=== PATIENT | female | born 1990 | race Caucasian/White ===

== ENCOUNTER 2017-05-21 09:30 | Inpatient (IN) | payer MEDICAID ==
[2017-05-21] MEDS ORDERED: OXYTOCIN 20 UNIT in LR 1,000 ML IV PRN (09:56)
[2017-05-21] MEDS ORDERED: TERBUTALINE SULFATE 1 MG/ML VIAL IV PRN (09:56)
[2017-05-21] MEDS ORDERED: OLIVE OIL 118 ML BTL MISC PRN (09:56)
[2017-05-21] MEDS ORDERED: EPSOM SALT 454 GM TP PRN (09:56)
[2017-05-21] MEDS ORDERED: LR 1,000 ML IV PRN (09:56)
[2017-05-21] MEDS ORDERED: fentaNYL 100 MCG/2 ML INJ ONE (09:57)
[2017-05-21] MEDS ORDERED: fentaNYL 2MCG/ML/BUP 0.1% RTU 100 ML BAG EP ONE (09:58)
[2017-05-21] MEDS ORDERED: BUPIVACAINE 0.25% 30 ML SDV ONE (09:58)
[2017-05-21] MEDS ORDERED: PHENYLEPHRINE HCL 100 MCG/ML SYR ONE (09:58)
[2017-05-21 10:07] LABS: % IMMATURE GRANULYOCYTES 0.7 % (0.0-1.1); ABSOLUTE IMMATURE GRANULOCYTES 0.08 10^3/uL (0.00-0.10); ADD DIFF? NO; ADD MORPH? NO; ADD SCAN? NO; ATYPICAL LYMPHOCYTE FLAG 10 (0-99); FRAGMENT RBC FLAG 0 (0-99); HEMATOCRIT 34.2 % (38.0-47.0); HEMOGLOBIN 11.4 g/dL (12.6-16.3); LEFT SHIFT FLG 0 (0-99); LIPEMIA HEMOLYSIS FLAG 80 (0-99); MEAN CELL HEMOGLOBIN CONCENTR. 33.3 g/dL (32.4-36.7); MEAN PLATELET VOLUME 10.1 fL (8.7-11.7); PLATELET CLUMPS FLAG 0 (0-99); PLATELET COUNT 231 10^3/uL (150-400); RED BLOOD CELL COUNT 3.93 10^6/uL (4.18-5.33); RED CELL DISTRIBUTION WIDTH 15.9 % (11.5-15.2)
[2017-05-21] MEDS ORDERED: TERBUTALINE SULFATE 1 MG/ML VIAL ONE (10:08)
[2017-05-21] MEDS ORDERED: OLIVE OIL 118 ML BTL ONE (10:08)
[2017-05-21] MEDS ORDERED: AMMONIA AROMATIC 1 EACH AMP IH ONE (10:08)
[2017-05-21] MEDS ORDERED: LIDOCAINE 1% 300 MG/30 ML SDV ONE (10:08)
[2017-05-21] MEDS ORDERED: OXYTOCIN 10 UNIT/ML VIAL ONE ×2 (10:09→10:53)
[2017-05-21] MEDS ORDERED: MISOPROSTOL 200 MCG TAB ONE (10:09)
--- NOTE | 2017-05-21 10:37 | GHP ---
[f rep st] PREOP HISTORY AND PHYSICAL DATE OF ADMISSION: 05/21/2017 ADMITTING DIAGNOSIS: Intrauterine at 38-0/7 weeks' gestation with spontaneous active labor . HISTORY OF PRESENT ILLNESS: The patient is a 27-year-old 1, para 0, with a last menstrual pe riod of 08/28/2016, EDC of 06/04/2017, which was confirmed by a first trimester ultrasound. She is a recent transfer to [facility] at 35 weeks from [facility] due to a move to [facility]. She has had a relatively uncomplicated course. She has a history of asthma, a history of THC use in the first trimester; she quit. A history of uterine fibroids that are small. No othe r significant risk factors. The patient began having contractions on the morning of the , had spontaneous rupture of membranes and presented to labor and delivery complete and +2 station. The patient has no past obstetrical history. PAST SURGICAL HISTORY: Menarche at age 12, interval q.28 days, 6-7 days. No significant history of abnormal Paps or STDs, and this is her first . PAST MEDICAL HISTORY: History of asthma, not significant. Has normal exercise tolerance. No chroni c meds. She has a history of a fractured left elbow secondary to a snow boarding accident in 2013. No major surgeries. ALLERGIES: No known drug allergies MEDICATIONS: Just include vitamins and DHA. LABS: She is O positive. Antibody negative. RPR nonreactive. Rubella immune. Hepatitis negative. HIV negative. Cystic fibrosis negative. Gonorrhea and chlamydia negative. Negative sequential sc reen. One-hour GTT was 139. GBS is negative. SOCIAL HISTORY: She is . She lives with her . 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 She denies tobacco, alcohol, and drug use. REVIEW OF SYSTEMS: Negative, except for contractions and pressure as above for active labor. FAMILY HISTORY: Father had a myocardial infarction at age 45, paternal grandfather, as well as pater nal uncle. Mother has chronic hypertension. She has kidney stones. Maternal grandmother had leukem ia. Paternal grandmother had breast cancer. Father has also had strokes. OBJECTIVE: VITAL SIGNS: Today afebrile. Vital signs are stable. heart tones are 130s, reactive, moderate variability, category 1. She is ramona every 3-4 minutes. Cervix is complete and +2 per RN exam. ASSESSMENT/PLAN: A 27-year-old 1, para 0, at 38 and 0/7 weeks' gestation, in spontaneous act alexander labor. Patient desires an epidural for pain control prior to entering the second stage of labor. We will try to get this done. status is reassuring. /[id number]/MODL
--- NOTE | 2017-05-21 10:59 | OBPROG ---
Labor Progress Note Assessment/Plan: Assessment: 27 y/o @ 38 weeks in spontaneous labor Plan: AROM now, will allow for passive descent and begin pushing when she feels the urge. status is reassuring. 05/21/17 10:59 Subjective/Intrapartum Course: 05/21/17 10:56 Pt is now comfortable with her epidural. She was feeling pelvic pressure. Objective: 05/21/17 10:00 - SVE Dilation (cm): 9 Effacement (%): 100 Station: +1 Membranes: AROM Amniotic Fluid Color: Clear - Contraction Pattern Assessment Current Contraction Pattern: Regular (Q 4) - FHR Assessment Myles FHR (bpm): 130 FHR Pattern Variability: Moderate FHR Category: 1 - Procedures Non-surgical Procedures: Amniotomy - AP Antepartum Course: 05/21/17 10:58 transfer @ 35 weeks from [facility]. h/o asthma, 1 hour gtt 139 no 3 hour done ICD10 Worksheet Patient Problems: Problems Problem Status Onset Active labor at term Acute - ICD10 Problem Qualifiers (1) Active labor at term
[2017-05-21] MEDS ORDERED: ONDANSETRON 4 MG/2 ML VIAL IVP PRN (13:52)
[2017-05-21] MEDS ORDERED: PHENYLEPHRINE HCL 100 MCG/ML SYR IVP PRN (13:52)
--- NOTE | 2017-05-21 13:55 | POSTANESTH ---
Post Anesthetic Evaluation Cardiovascular Status: Normal, Stable, Similar to Pre-Op Cond Respiratory Status: Normal, Stable, Similar to Pre-op Cond. Level of Consciousness/Mental Status: Can Participate in Eval, Alert and Oriented Pain Control: Adequate, Prn Tx Ordered Nausea/Vomiting Control: Adequate, Prn Tx Ordered Complications Possibly Related to Anesthesia: None Noted
[2017-05-21] MEDS ORDERED: fentaNYL 2MCG/ML/BUP 0.1% RTU 100 ML EP SCH (14:00)
[2017-05-21] MEDS ORDERED: LR 500 ML IV SCH (14:00)
--- NOTE | 2017-05-21 14:08 | PREANESOB ---
Obstetric Pre-Anesthesia Info - General Info Proposed Procedure: Labor and delivery. : 1 Para: 0 ALAINA: 06/04/17 Gestational Age: 38 week(s) and 0 day(s) - Info Status: Full Term Monitors: External FHR Baseline (bpm): 130 FHR Pattern: Reassuring - Labor Status Cervical Dilation per last OB SVE: 10 Station per last OB SVE: +1 Amniotic Fluid Color: Clear Indications for Labor Analgesia: Pain Control Labor Epidural: Proposed Anesthesia ROS: Negative. Allergies/Adverse Reactions: Allergy/AdvReac Type Severity Reaction Status Date / Time No Known Allergies Allergy Unverified 05/21/17 09:56 Visit Medications: Generic Name Dose Route Start Last Admin Trade Name Freq PRN Reason Stop Dose Admin Diphenhydramine HCl 25 - 50 mg 05/21/17 13:52 Benadryl Injection IVP 11/17/17 13:51 Q6HRS PRN Itching Lactated Ringer's 1,000 mls @ 0 mls/hr 05/21/17 09:56 Lr IV 05/22/17 09:55 PRN PRN SEE PROTOCOL CONDITIONS Protocol Per Protocol Oxytocin 20 unit/ Lactated 1,002 mls @ 150 mls/hr 05/21/17 09:56 Ringer's IV PRN PRN Post- bleeding Fentanyl/Bupivacaine HCl 100 mls @ 0 mls/hr 05/21/17 14:00 Fentanyl/Bupivacaine/Ns 2 Mcg/Ml 0.1% (Premix EP 05/31/17 13:59 CONT ESTEFANIA Protocol As Directed Lactated Ringer's 500 mls @ 0 mls/hr 05/21/17 14:00 Lr IV 11/17/17 13:59 CONT ESTEFANIA As Directed Ibuprofen 600 mg 05/21/17 09:56 Motrin PO 11/17/17 09:55 Q6HRS PRN post , inflammation Magnesium Sulfate 454 gm 05/21/17 09:56 Epsom Salt TP 11/17/17 09:55 Q1H PRN perineal discomfort [place] Oil 118 ml 05/21/17 09:56 Sweet Oil MISC 11/17/17 09:55 ONCE PRN perineal massage Ondansetron HCl 4 mg 05/21/17 13:52 Zofran IVP 05/22/17 13:51 Q4HRS PRN Nausea/Vomiting, Can't Take PO Phenylephrine HCl 100 mcg 05/21/17 13:52 Neosynephrine IVP 11/17/17 13:51 .Q2M PRN Hypotension Terbutaline Sulfate 0.25 mg 05/21/17 09:56 Brethine IV 11/17/17 09:55 ONCE PRN Tachysystole Discontinued Medications Generic Name Dose Route Start Last Admin Trade Name Aj PRN Reason Stop Dose Admin Ammonia (Aromatic Spirit) Confirm 05/21/17 10:08 Ammonia Aromatic Administered 05/21/17 10:09 Dose 1 each IH .STK-MED ONE Bupivacaine HCl Confirm 05/21/17 09:58 Sensorcaine 0.25% Sdv Administered 05/21/17 09:59 Dose 30 ml .ROUTE .STK-MED ONE Fentanyl Confirm 05/21/17 09:57 Sublimaze Administered 05/21/17 09:58 Dose 100 mcg .ROUTE .STK-MED ONE Fentanyl/Bupivacaine HCl Confirm 05/21/17 09:58 Fentanyl/Bupivacaine/Ns 2 Mcg/Ml 0.1% (Premix Administered 05/21/17 09:59 Dose 100 ml EP .STK-MED ONE Lidocaine HCl Confirm 05/21/17 10:08 Lidocaine Hcl 1% Administered 05/21/17 10:09 Dose 300 mg .ROUTE .STK-MED ONE Misoprostol Confirm 05/21/17 10:09 Cytotec Administered 05/21/17 10:10 Dose 800 mcg .ROUTE .STK-MED ONE [place] Oil Confirm 05/21/17 10:08 Sweet Oil Administered 05/21/17 10:09 Dose 118 ml .ROUTE .STK-MED ONE Oxytocin Confirm 05/21/17 10:09 Pitocin Administered 05/21/17 10:10 Dose 40 unit .ROUTE .STK-MED ONE Oxytocin Confirm 05/21/17 10:53 Pitocin Administered 05/21/17 10:54 Dose 20 unit .ROUTE .STK-MED ONE Phenylephrine HCl Confirm 05/21/17 09:58 Neosynephrine Administered 05/21/17 09:59 Dose 1,000 mcg .ROUTE .STK-MED ONE Terbutaline Sulfate Confirm 05/21/17 10:08 Brethine Administered 05/21/17 10:09 Dose 1 mg .ROUTE .STK-MED ONE - Anesthesia History Response to Local Anesthetics: Normal Anesthesia & Operative History: No Prior Problems Family Anesthesia History: Not Applicable - Social History Substance Use/Abuse: Denies - Vital Signs Blood Pressure: 125/80 Heart Rate: 107 Respiratory Rate: 18 Height/Weight (Nursing): Height 170.18 cm Weight 70.307 kg - Focused Exam Mallampati Score: Class 1 Mouth exam: normal dental/mouth exam Pulmonary: no respiratory distress Cardiovascular: regular rate and rhythym Labs: 05/21/17 10:00 Patient ABO/Rh O POSITIVE 05/21/17 10:00 - Plan Anesthetic Plan: MAC Consent Signed and on Chart: Yes Patient/Guardian Understands and Agrees to Plan: Yes Urgent/Emergent Case: Eleno chinchilla completed preop but documented later for safe timely pt care
[2017-05-21] MEDS ORDERED: HYDROCORTISONE 0.5% CREAM TP PRN (15:07)
[2017-05-21] MEDS ORDERED: ACETAMINOPHEN 325 MG TAB PO PRN (15:07)
[2017-05-21] MEDS ORDERED: SIMETHICONE 80 MG TAB CHEW PO PRN (15:07)
--- NOTE | 2017-05-21 15:11 | OBDEL ---
Info Type: Vaginal Presentation at Delivery: Vertex L&D Analgesia/Anesthesia Type: Epidural, Local (1 % lidocaine) GBS+: No - Hospital Course Intrapartum: 05/21/17 10:56 Pt is now comfortable with her epidural. She was feeling pelvic pressure. Indications for Delivery: Spontaneous Labor Vaginal Delivery - Delivery Provider Delivery Physician/CNM: Brisa Shelton - Labor and Delivery Onset of Contractions Date: 05/21/17 Onset of Contractions Time: 04:30 Onset of Contractions Type: Spontaneous Rupture of Membranes Date: 05/21/17 Rupture of Membranes Time: 10:55 Rupture of Membranes Type: Artificial Amniotic Fluid Color: Clear Dilation Complete Date: 05/21/17 Dilation Complete Time: 12:30 Placenta Delivery Date: 05/21/17 Placenta Delivery Time: 14:50 Total Hours of Labor: 10 Non-surgical Procedures: Amniotomy Laceration: 2nd Degree Repair: 2-0, Vicryl Vaginal Sponge Count Correct: Yes Vaginal Needle Count Correct: Yes Vaginal Sweep Performed: No EBL: 300 Delivery Events: Other (Specify) (compound presentation Right hand) - Medications Labor Augmentation/Induction Methods Used: None Data Myles Delivery Date: 05/21/17 Delivery Time: 14:42 ALAINA: 06/04/17 Gestational Age: 38 week(s) and 0 day(s) Sex of : Male Score (1 Min): 8 Score (5 Min): 9 ICD10 Worksheet Patient Problems: Problems Problem Status Onset Active labor at term Acute (spontaneous vaginal delivery) Acute - ICD10 Problem Qualifiers (1) Active labor at term (2) (spontaneous vaginal delivery)
[2017-05-21] MEDS: IBUPROFEN 600 MG TAB PO PRN (22:34)
[2017-05-21] MEDS: HYDROCODONE/APAP 5/325 TAB PO PRN (22:35)
[2017-05-22] MEDS: IBUPROFEN 600 MG TAB PO PRN ×3 (08:12→19:48)
[2017-05-22] MEDS: DOCUSATE SODIUM 100 MG CAP PO PRN (08:12)
--- NOTE | 2017-05-22 09:46 | OBPP ---
Progress Note Assessment/Plan: Assessment: 1) s/p PPD # 1 - pt is stable 2) Anemia - pt is asymptomatic Plan: Continue routine pp care Iron is already ordered Plan for d/c home in am 12/6 05/22/17 09:45 Subjective/ Course: 05/22/17 09:45 Pt seen and examined. Pt just finished taking a bath-doing well with no complaints. Mild cramping. Mod lochia. She is OOB, ana regular diet, voiding and passing flatus. BF without difficulty. Objective: 05/22/17 07:55 Patient ABO/Rh O POSITIVE 05/21/17 10:00 Temp Pulse Resp BP Pulse Ox 36.4 C 87 18 131/77 H 96 05/21/17 19:50 05/21/17 19:50 05/21/17 19:50 05/21/17 19:50 05/21/17 19:50 Uterine Position/Fundal Height: Umbilicus -2 Uterine Tone: Firm Physical Exam - Physical Exam Respiratory: lungs clear, normal breath sounds Cardiac/Chest: regular rate, rhythm Abdomen: normal bowel sounds, non-tender, soft, flatus (+) Extremities: non-tender, normal inspection Skin: normal color, warm/dry Neuro/Psych: alert, normal mood/affect, oriented x 3
[2017-05-22 12:12] VITALS: RESP 16
[2017-05-22] MEDS: IRON POLYSAC/IRON HEME 28 MG TAB PO SCH (12:19)
[2017-05-22] MEDS: HYDROCODONE/APAP 5/325 TAB PO PRN (14:50)
[2017-05-22 20:20] VITALS: O2SAT 97
[2017-05-23] MEDS: HYDROCODONE/APAP 5/325 TAB PO PRN (00:35)
[2017-05-23] MEDS: DOCUSATE SODIUM 100 MG CAP PO PRN (08:35)
[2017-05-23] MEDS: IRON POLYSAC/IRON HEME 28 MG TAB PO SCH (08:35)
[2017-05-23] MEDS: IBUPROFEN 600 MG TAB PO PRN (08:35)
[2017-05-23 10:31] VITALS: BP 123/66; PULSE 97; TEMP 97.9
--- NOTE | 2017-05-23 12:00 | OBPP ---
Progress Note Assessment/Plan: Assessment: PPD 2 s/p anemia Plan: D/C home, iron BID 05/23/17 11:58 Subjective/ Course: 05/22/17 09:45 Pt seen and examined. Pt just finished taking a bath-doing well with no complaints. Mild cramping. Mod lochia. She is OOB, ana regular diet, voiding and passing flatus. BF without difficulty. 05/23/17 11:59 Doing well. working on BF, tired. mild cramps. bld is light. urinating fine. Objective: 05/22/17 07:55 Patient ABO/Rh O POSITIVE 05/21/17 10:00 Temp Pulse Resp BP Pulse Ox 36.6 C 97 16 123/66 H 97 05/23/17 08:15 05/23/17 08:15 05/23/17 08:15 05/23/17 08:15 05/22/17 19:45 Uterine Position/Fundal Height: Umbilicus -1 Uterine Tone: Firm Physical Exam - Physical Exam Abdomen: non-tender, soft, other (FF at umb-1) Extremities: non-tender, pedal edema (mild) Skin: normal color, warm/dry Neuro/Psych: alert, normal mood/affect
== END 2017-05-23 12:40 | disposition home or self-care (01) | DRG 775 ==
LOC: FLD 09:30 → FOB 18:13
PROVIDERS: ADMIT Obstetrics & Gynecology; ATTEND Obstetrics & Gynecology
PROC: 0KQM0ZZ Repair Perineum Muscle, Open Approach (ICD-10-PCS; principal; 2017-05-21)
PROC: 10907ZC Drainage of Amniotic Fluid, Therapeutic from Products of Conception, Via Natural or Artificial Opening (ICD-10-PCS; principal; 2017-05-21)
PROC: 10E0XZZ Delivery of Products of Conception, External Approach (ICD-10-PCS; principal; 2017-05-21)
DX: O70.1 Second degree perineal laceration during delivery (principal); O32.6XX0 Maternal care for compound presentation, not applicable or unspecified; Z3A.38 38 weeks gestation of pregnancy; Z37.0 Single live birth
CPT/HCPCS: J2370; J3010; J3105

== ENCOUNTER 2018-10-02 10:35 | Emergency (ER) | payer MEDICAID ==
[2018-10-02] MEDS ORDERED: ONDANSETRON DISINTEGRATING 4 MG TAB PO ONE (10:47)
[2018-10-02] MEDS ORDERED: PROMETHAZINE HCL 25 MG/ML INJ IVP ONE (12:07)
--- NOTE | 2018-10-02 12:07 | EDPHY ---
H & P Stated Complaint: "i think im " vomiting h/a x 1 week Source: Patient, Family () Exam Limitations: No limitations - Personal History LMP (Females 10-55): Over 28 Days Ago - Medical/Surgical History Hx Asthma: No Hx Chronic Respiratory Disease: No Hx Diabetes: No Hx Cardiac Disease: No Hx Renal Disease: No Hx Cirrhosis: No Hx Alcoholism: No Hx HIV/AIDS: No Hx Splenectomy or Spleen Trauma: No Other PMH: Hx ovarian cysts, fibroids - Social History Smoking Status: Never smoked Time Seen by Provider: 10/02/18 12:01 HPI/ROS: HPI: This is a 28-year-old female who presents with Chief Complaint: "i think im " vomiting h/a x 1 week Location: Abdomen Quality: Nausea, vomiting Duration: 1 week Signs and Symptoms: no fever, + nausea, + vomiting, no hematemesis, no blood in stool, no abdominal bloating, no diarrhea, no back pain, no urinary symptoms, no vaginal bleeding/discharge, no indigestion, no chest pain, no shortness of breath Timing: Acute, worse in the morning Severity: Moderate Context: Patient is G1, currently breast-feeding her [id number] child presents with 1 week history of nausea and several episodes of vomiting daily that occur mostly in the mornings. She reports that she has decreased appetite but feels hungry. She has a generalized dull aching headache. Not the worse headache of her life. Denies thunderclap symptoms. She has no dysuria, urinary frequency, urinary hesitancy. OBGYN is Dr. Dudley. Last menstrual period was sometime in June. July she had "a light period." Patient reports that she had similar symptoms with her 1st . Modifying Factors: None Comment: ROS: A comprehensive 10 system review of systems is otherwise negative aside from elements mentioned in the history of present illness. MEDICAL/SURGICAL/SOCIAL HISTORY: Medical history: Ovarian cysts, fibroids Surgical history: Denies Social history: . Nonsmoker. Family history noncontributory. CONSTITUTIONAL: Well-developed, well-nourished, adult white female, and child at bedside, awake and alert, no obvious distress HEENT: Atraumatic and normocephalic, PERRL, EOMI. Nares patent; no rhinorrhea; no nasal mucosal edema. Tympanic membranes clear. Oropharynx clear, no exudate and moist pink mucosa. Airway patent. No lymphadenopathy. No meningismus. Cardiovascular: Normal S1/S2, regular rate, regular rhythm, without murmur rub or gallop. PULMONARY/CHEST: Symmetrical and nontender. Clear to auscultation bilaterally. Good air movement. No accessory muscle usage. ABDOMEN: Soft, nondistended, nontender, no rebound, no guarding, no peritoneal signs, no masses or organomegaly. No CVAT. EXTREMITIES: 2/2 pulses, strength 5/5, no deformities, no clubbing, no cyanosis or edema. NEUROLOGICAL: no focal neuro deficits. GCS 15. SKIN: Warm and dry, no erythema. no rash. Good capillary refill. (Alejandra Molina) Constitutional: Initial Vital Signs Temperature (C) 36.5 C 10/02/18 10:40 Heart Rate 84 10/02/18 10:40 Respiratory Rate 16 10/02/18 10:40 Blood Pressure 118/77 10/02/18 10:40 O2 Sat (%) 98 10/02/18 10:40 O2 Delivery Mode Room Air Allergies/Adverse Reactions: No Known Allergies Allergy (Verified 10/02/18 10:39) Home Medications: Medication Instructions Recorded Cephalexin [Keflex (*)] 500 mg PO TID #21 cap 10/02/18 Vit27&Calcium/Iron/FA 1 each PO DAILY #30 tab 10/02/18 [ Rx 1 Tablet (RX)] Promethazine HCl 25 mg PO Q6 #12 tablet 10/02/18 Medical Decision Making ED Course/Re-evaluation: Vital signs reviewed and stable upon arrival. IV access, laboratory studies, urinalysis ordered Given 1 L normal saline, p.o. Zofran Urinalysis my read shows 4+ bacteria, 2+ LE, 1+ ketones; sent for urine culture ; IV Rocephin given Laboratory studies reviewed. No signs of leukocytosis/anemia/platelet dysfunction/RENETTA/electrolyte imbalance. Chart review shows on 10/02/2018 blood type was O-positive No signs of dehydration. Abdomen is soft and nontender with no vaginal bleeding to indicate pelvic ultrasound need No signs of pyelonephritis 1240: Reassessed patient who reports relief of symptoms and ability to tolerate p.o. Given a prescription for vitamins, Phenergan, with OBGYN follow-up. This patient was seen under the supervision of my secondary supervising physician. I evaluated care for this patient independently. (Alejandra Molina) The patient was evaluated and managed by the physician certified physician assistant. I have reviewed this chart and I agree with the findings and plan of care as documented , as indicated by my signature. I am the secondary supervising physician. ( Bettie Agrawal) Differential Diagnosis: Differential diagnosis includes but is not limited to gastroparesis, , gastroenteritis, GERD, electrolyte imbalance (Alejandra Molina) - Data Points Laboratory Results: Laboratory Results 10/02/18 11:11 10/02/18 11:05 10/02/18 10/02/18 10/02/18 11:11 11:05 10:50 WBC 8.64 10^3/uL 10^3/uL (3.80-9.50) RBC 4.83 10^6/uL 10^6/uL (4.18-5.33) Hgb 15.6 g/dL g/dL (12.6-16.3) Hct 45.6 % % (38.0-47.0) MCV 94.4 fL fL (81.5-99.8) MCH 32.3 pg pg (27.9-34.1) MCHC 34.2 g/dL g/dL (32.4-36.7) RDW 12.5 % % (11.5-15.2) Plt Count 298 10^3/uL 10^3/uL (150-400) MPV 9.4 fL fL (8.7-11.7) Neut % (Auto) 64.2 % % (39.3-74.2) Lymph % (Auto) 24.1 % % (15.0-45.0) [place] % (Auto) 7.8 % % (4.5-13.0) Eos % (Auto) 2.8 % % (0.6-7.6) Baso % (Auto) 0.9 % % (0.3-1.7) Nucleat RBC Rel Count 0.0 % % (0.0-0.2) Absolute Neuts (auto) 5.55 10^3/uL 10^3/uL (1.70-6.50) Absolute Lymphs (auto) 2.08 10^3/uL 10^3/uL (1.00-3.00) Absolute Monos (auto) 0.67 10^3/uL 10^3/uL (0.30-0.80) Absolute Eos (auto) 0.24 10^3/uL 10^3/uL (0.03-0.40) Absolute Basos (auto) 0.08 10^3/uL 10^3/uL (0.02-0.10) Absolute Nucleated RBC 0.00 10^3/uL 10^3/uL (0-0.01) Immature Gran % 0.2 % % (0.0-1.1) Immature Gran # 0.02 10^3/uL 10^3/uL (0.00-0.10) Sodium 136 mEq/L mEq/L (135-145) Potassium 4.1 mEq/L mEq/L (3.5-5.2) Chloride 103 mEq/L mEq/L (97-110) Carbon Dioxide 21 mEq/l L mEq/l (22-31) Anion Gap 12 mEq/L mEq/L (6-14) BUN 13 mg/dL mg/dL (7-23) Creatinine 0.8 mg/dL mg/dL (0.6-1.0) Estimated GFR > 60 Glucose 88 mg/dL mg/dL (70-100) Calcium 9.2 mg/dL mg/dL (8.5-10.4) Urine Color MALVIN Urine Appearance TURBID Urine pH 6.0 (5.0-7.5) Ur Specific [place] 1.030 (1.002-1.030) Urine Protein 2+ H (NEGATIVE) Urine Ketones 1+ H (NEGATIVE) Urine Blood NEGATIVE (NEGATIVE) Urine Nitrate NEGATIVE (NEGATIVE) Urine Bilirubin NEGATIVE (NEGATIVE) Urine Urobilinogen 2.0 EU H EU (0.2-1.0) Ur Leukocyte Esterase 2+ H (NEGATIVE) Urine RBC 15-25 /hpf H /hpf (0-3) Urine WBC 25-50 /hpf H /hpf (0-3) Ur Epithelial Cells 4+ /lpf H /lpf (NONE-1+) Urine Bacteria 4+ /hpf H /hpf (NONE SEEN) Urine Mucus 4+ /lpf H /lpf (NONE-1+) Urine Glucose NEGATIVE (NEGATIVE) Medications Given: Discontinued Medications Ceftriaxone Sodium/Dextrose (Rocephin 1 Gm (Premix)) 50 mls @ 100 mls/hr IV EDNOW ONE PRN Reason: Protocol Stop: 10/02/18 12:38 Last Admin: 10/02/18 12:23 Dose: 50 mls Ondansetron HCl (Zofran Odt) 4 mg PO EDNOW ONE Stop: 10/02/18 10:48 Last Admin: 10/02/18 10:48 Dose: 4 mg Promethazine HCl (Phenergan) 12.5 mg IVP ONCE ONE Stop: 10/02/18 12:08 Last Admin: 10/02/18 12:24 Dose: Not Given Point of Care Test Results: Urine HCG Results Positive Departure - Departure Disposition: Home, Routine, Self-Care Clinical Impression: state, incidental, Urinary tract infection affecting Condition: Good Instructions: Nausea and Vomiting in (ED), Urinary Tract Infection in (ED), First Trimester (ED) Additional Instructions: Consume a minimum of 8-10 glasses of water or electrolyte fluid replacement drinks that include Gatorade, Powerade, Pedialyte. Eat a bland diet for the next 48 hours and then slowly advance as tolerated. Take promethazine 1 tab every 6 hours as needed for nausea, vomiting. Start taking vitamin daily. Take all antibiotic as directed. Do not skip a dose. Make follow-up appointment with OBGYN in the next several weeks. Referrals: Edmond Mohamud MD [Medical Doctor] - As per Instructions Prescriptions: Cephalexin [Keflex (*)] 500 mg PO TID #21 cap Vit27&Calcium/Iron/FA [ Rx 1 Tablet (RX)] 1 each PO DAILY #30 tab Promethazine HCl 25 mg PO Q6 #12 tablet
[2018-10-02 12:28] LABS: PLATELET COUNT 298 10^3/uL (150-400)
[2018-10-02 13:35] VITALS: BP 122/78
== END 2018-10-02 13:35 | disposition home or self-care (01) ==
DX: Z33.1 Pregnant state, incidental (principal); N39.0 Urinary tract infection, site not specified; R51 Headache
CPT/HCPCS: 81025-ER; 96365; J0696; J2550